=== PATIENT | female | born 1975 | race Caucasian/White ===

== ENCOUNTER 2017-10-28 10:10 | Outpatient (CLI) | payer OTHER | END 2017-10-28 12:38 | disposition home or self-care (01) | LOC: RAD 10:10 | DX: S69.92XA Unspecified injury of left wrist, hand and finger(s), initial encounter (principal) ==

== ENCOUNTER → 2017-10-28 | Outpatient (CLI) | payer OTHER ==
[~2017-10-28] MED LIST: CEFUROXIME500 MG PO; CLINDAMYCIN HCL1 GM MC; FLONASE16 GM NS; OSEL75CA PO; SYNTHROID75 MCG
== END | disposition home or self-care (01) ==
LOC: PPHC 09:24
DX: S00-T88 Injury, poisoning and certain other consequences of external causes (principal); X58.XXXS Exposure to other specified factors, sequela

== ENCOUNTER 2017-11-06 18:31 | Emergency (ER) | payer OTHER ==
[~2017-11-06] VITALS: Ht 152.4 cm; Wt 85.3 kg
== END 2017-11-06 23:41 | disposition home or self-care (01) ==
LOC: ER 18:31
DX: M94.0 Chondrocostal junction syndrome [Tietze] (principal)

== ENCOUNTER 2018-10-03 10:10 | Outpatient (CLI) | payer OTHER | END 2018-10-03 10:19 | disposition home or self-care (01) | LOC: RAD 10:10 | DX: M54.89 Other dorsalgia (principal); M62.838 Other muscle spasm ==

== ENCOUNTER 2023-10-16 13:05 | Emergency (ER) | payer OTHER ==
[~2023-10-16] VITALS: Ht 152.4 cm; Wt 82.1 kg
[2023-10-16] MEDS ORDERED: KETOROLAC TROMETHAMINE 60 MG VIAL IM ONE (14:30)
[2023-10-16] MEDS ORDERED: ORPHENADRINE CITRATE 30 MG/ML AMPUL IM ONE (14:30)
[2023-10-16 15:35] LABS: HEMATOCRIT 36.3 % (36.0-45.00); HEMOGLOBIN 12.2 g/dL (12.0-15.00); MEAN CELL VOLUME 85.3 fL (80.00-100.00); MEAN CORPUSCULAR HEMOGLOBIN 28.6 pg (27.00-32.0); MEAN CORPUSCULAR HGB CONC 33.6 g/dl (32.0-36.0); PLATELET COUNT 457 K/uL (150-450); RED BLOOD COUNT 4.26 M/uL (4.00-6.00); RED CELL DISTRIBUTION WIDTH 13.7 % (11.5-14.5)
[2023-10-16 15:52] LABS: CALCIUM 9.5 mg/dL (8.5-10.1); CREATININE SERUM 0.51 mg/dL (0.55-1.02); GFR 128.71; POTASSIUM 4.28 mEq/L (3.5-5.1)
[2023-10-16] MEDS ORDERED: DICLOFENAC SODI50 MG PO (17:25)
[2023-10-16] MEDS ORDERED: NORFLEX100MG PO (17:25)
== END 2023-10-16 17:33 ==
LOC: ER 13:06
PROVIDERS: Nurse Practitioner Family
DX: M62.838 Other muscle spasm (principal); E03.8 Other specified hypothyroidism; Z88.1 Allergy status to other antibiotic agents

== ENCOUNTER 2024-04-30 08:13 | Outpatient (CLI) | payer OTHER ==
[~2024-04-30 08:13] MED LIST changes: +DICLOFENAC SODI50 MG PO; +NORFLEX100MG PO
== END 2024-04-30 08:19 | disposition home or self-care (01) ==
LOC: SONOGRAMA 08:13
PROVIDERS: ATTEND Physical Medicine & Rehabilitation
DX: M25.571 Pain in right ankle and joints of right foot (principal); M25.572 Pain in left ankle and joints of left foot